=== PATIENT | female | born 1995 | race Caucasian/White ===

== ENCOUNTER 2018-02-09 19:54 | Emergency (ER) | payer OTHER, MEDICAID, SELFPAY ==
[2018-02-09 20:09] VITALS: BP 149/91; PULSE 80; RESP 14; TEMP 36.4; O2SAT 100
--- NOTE | 2018-02-09 20:27 | DI.US.S_ITS ---
PROCEDURE: US OB <= 14 WEEKS FETUS INDICATIONS: PAIN OUTSIDE/PRIOR DATING DATA: Last menstrual period (LMP): 12/23/17. LMP-based estimated date of delivery (THELMA): 09/29/18. First dating scan (date and location): This study, 02/09/18. Estimated date of delivery (THELMA) from first dating scan: 10/02/18. TECHNIQUE: Real-time scanning was performed of the fetus and maternal pelvic organs, with image documentation. Endovaginal scanning was also performed to better visualize the fetus and maternal ovaries. COMPARISON: None. FINDINGS: Embryo: A crown-rump length of 0.6 correlates with a gestational age of 6 weeks 3 days, plus or -5 days. heart rate is 111 beats per minute. Measurement variability in dating: +/- 4 weeks by LMP, +/- 7 days by mean sac diameter (use before 6 weeks gestation if crown-rump length not able to be measured), +/- 5 days by crown-rump length (up to 8 weeks 6 days gestation), +/- 7 days by crown-rump length (up to 13 weeks 6 days gestation). Maternal organs: Ovaries normal considering gestational status.. Limited images through the kidneys demonstrate no hydronephrosis. IMPRESSION: Single living intrauterine gestation measured at 6 weeks 3 days gestational age with the delivery date projected to be centered on 10/02/18, plus or -5 days Dictated by: Binu Serrato M.D. on 02/09/2018 at 21:14 Approved by: Binu Serrato M.D. on 02/09/2018 at 21:17
--- NOTE | 2018-02-09 20:29 | ED.PREGNANCY ---
HPI - <ISMAEL Acosta-BC - Last Filed: 02/09/18 21:55> General Chief complaint: OB/Uterine Contractions Stated complaint: SHARP PAINS, 7 WEEKS Time Seen by Provider: 02/09/18 20:08 Source: patient and family Mode of arrival: ambulatory Limitations: no limitations History of Present Illness HPI Narrative: Patient is a 22-year-old female who states she is last menstrual period 12/23/2017. She presents with chief complaint of abdominal pain that started yesterday. She states it is the center of her abdomen radiating down to her right lower quadrant. She denies any chest pain, shortness of breath, dizziness or lightheadedness. She states she has been vomiting profusely for the past week, which she states happened with her last . She denies any vaginal bleeding or vaginal discharge or sexually transmitted infection risk. She presents with today. She complains of slight dysuria but no noted urgency or frequency. She states she has had urinary tract infections before and this does not feel like one. She has not had any OB care yet this and does not have a confirmed IUP. She denies any constipation or diarrhea. Related Data Previous Rx's Medication Instructions Recorded docusate sodium [Colace] 100 mg PO BID #14 cap 02/09/17 oxycodone 5 mg PO Q4HP PRN #30 tab 02/09/17 cephalexin 500 mg PO BID #20 cap 02/09/18 ondansetron 4 mg disintegrating 4 mg PO Q6H PRN #20 tab 02/09/18 tablet Allergies Allergy/AdvReac Type Severity Reaction Status Date / Time codeine Allergy Intermediate itching, Verified 02/09/18 20:12 SOB Pollen Allergy Mild sneezing Uncoded 07/21/17 12:32 Review of Systems <ISMAEL Acosta- - Last Filed: 02/09/18 21:55> Review of Systems GENERAL: Denies chills, fatigue, malaise, fever, sweats. HEENT: Denies sinus pain, ear pain, sore throat, difficulty swallowing, dizziness. RESPIRATORY: Denies dyspnea, cough, wheezing, hemoptysis, sputum. CARDIOVASCULAR: Denies chest pain, palpitations, orthopnea, edema, GASTROINTESTINAL: see HPI : See HPI. MUSCULOSKELETAL: denies weakness, joint pain, or bony pain SKIN: Denies rash, skin lesions, or other NEUROLOGIC: Denies weakness, headache, numbness, change in speech, confusion, seizures, incoordination. PSYCHIATRIC: No concerning psychosocial issues. 12 point review of systems is negative except for those stated above Exam <Iona HollyISMAEL-BC - Last Filed: 02/09/18 21:55> Narrative Exam Narrative: GENERAL: This is a well-nourished, well-developed patient, in mild distress. HEAD: Atraumatic. Normocephalic. No temporal or scalp tenderness. EYES: Pupils equal round and reactive. Extraocular motions intact. No scleral icterus. No injection or drainage. ENT: Nose without bleeding, purulent drainage or septal hematoma. Throat without erythema, tonsillar hypertrophy or exudate. Uvula midline. Airway patent. NECK: Trachea midline. No JVD or lymphadenopathy. Supple, nontender, no meningeal signs. CARDIOVASCULAR: Regular rate and rhythm without murmurs, gallops, or rubs. RESPIRATORY: Clear to auscultation. Breath sounds equal bilaterally. No wheezes, rales, or rhonchi. GASTROINTESTINAL: Abdomen soft, nondistended. No hepato-splenomegaly, or palpable masses. Pain on palpation suprapubic area. Pain to palpation right lower quadrant with guarding noted. patient is exquisitely tender right lower quadrant and suprapubic area, grimacing upon exam. EXTREMITIES: No clubbing, cyanosis, or edema. No joint tenderness, effusion, or edema noted. BACK: Nontender without deformity or crepitance. No flank tenderness. no CVA tenderness bilaterally. NEURO: AOx3. SKIN: No rash or erythema. Initial Vital Signs Initial Vital Signs: Vital Signs Temperature 97.6 F 02/09/18 20:09 Pulse Rate 80 02/09/18 20:09 Respiratory Rate 14 02/09/18 20:09 Blood Pressure 149/91 H 02/09/18 20:09 Pulse Oximetry 100 02/09/18 20:09 <Rosario Gann DO - Last Filed: 02/10/18 00:02> Initial Vital Signs Initial Vital Signs: Vital Signs Temperature 97.6 F 02/09/18 20:09 Pulse Rate 80 02/09/18 20:09 Respiratory Rate 14 02/09/18 20:09 Blood Pressure 149/91 H 10/31/18 20:09 Pulse Oximetry 100 02/09/18 20:09 Course <ISMAEL Acosta-BC - Last Filed: 02/09/18 21:55> Orders Ordered: ED Orders 02/09/18 20:22 Urinalysis and Microscopic Stat Urine Culture Stat 02/09/18 20:27 US OB <= 14 weeks fetus Stat 02/09/18 20:40 ABO RH Type Stat Amylase Stat Complete Blood Count AUTO DIFF Stat Comprehensive Metabolic Panel Stat HCG Quantitative Stat Lipase Stat Discontinued Medications Cephalexin HCl (Keflex) 500 mg PO NOW ONE Stop: 02/09/18 21:47 Last Admin: 02/09/18 21:49 Dose: 500 mg Sodium Chloride (Normal Saline 0.9%) 1,000 mls @ 1,000 mls/hr IV BOLUS ONE Stop: 02/09/18 21:26 Last Infusion: 02/09/18 21:53 Dose: 0 mls/hr Admin: 02/09/18 20:51 Dose: 1,000 mls/hr Potassium Chloride (Klor-Con M20) 20 meq PO NOW ONE Stop: 02/09/18 21:47 Last Admin: 02/09/18 21:50 Dose: 20 meq Vital Signs - 8 hr 02/09/18 20:09 02/09/18 21:54 Temperature 97.6 F Pulse Rate 80 80 Respiratory Rate 14 13 Blood Pressure 149/91 H Blood Pressure [Left Arm] 103/49 L Pulse Oximetry 100 100 <Rosario Gann DO - Last Filed: 02/10/18 00:02> Orders Ordered: ED Orders 02/09/18 20:22 Urinalysis and Microscopic Stat Urine Culture Stat 02/09/18 20:27 US OB <= 14 weeks fetus Stat 02/09/18 20:40 ABO RH Type Stat Amylase Stat Complete Blood Count AUTO DIFF Stat Comprehensive Metabolic Panel Stat HCG Quantitative Stat Lipase Stat Discontinued Medications Cephalexin HCl (Keflex) 500 mg PO NOW ONE Stop: 02/09/18 21:47 Last Admin: 02/09/18 21:49 Dose: 500 mg Sodium Chloride (Normal Saline 0.9%) 1,000 mls @ 1,000 mls/hr IV BOLUS ONE Stop: 02/09/18 21:26 Last Infusion: 02/09/18 21:53 Dose: 0 mls/hr Admin: 02/09/18 20:51 Dose: 1,000 mls/hr Potassium Chloride (Klor-Con M20) 20 meq PO NOW ONE Stop: 02/09/18 21:47 Last Admin: 02/09/18 21:50 Dose: 20 meq Vital Signs - 8 hr 02/09/18 20:09 02/09/18 21:54 Temperature 97.6 F Pulse Rate 80 80 Respiratory Rate 14 13 Blood Pressure 149/91 H Blood Pressure [Left Arm] 103/49 L Pulse Oximetry 100 100 MDM - OB/Uterine Contractions <KENNEDY Acosta - Last Filed: 02/09/18 21:55> Lab Data Result diagrams: 02/09/18 20:40 02/09/18 20:40 Lab Results 02/09/18 02/09/18 02/09/18 Range/Units 20:22 20:40 20:40 WBC 11.0 (4.5-11.0) X10^3/uL RBC 4.63 (4.0-5.2) X10^6/uL Hgb 13.0 (12.0-16.0) g/dL Hct 38.4 (36-46) % MCV 82.9 (80-100) fL MCH 28.1 (26-34) PG MCHC 33.9 (30-36) % RDW 12.8 (11.6-14.8) % Plt Count 229 (150-400) X10^3/uL Neut % (Auto) 65.5 (50-75) % Lymph % (Auto) 25.6 (25-40) % [place] % (Auto) 7.1 (3-14) % Eos % (Auto) 1.0 L (2-4) % Baso % (Auto) 0.8 (0-2) % Neut # (Auto) 7200 H (7379-1329) /uL Sodium 142 (137-145) mmol/L Potassium 3.4 (3.4-5.1) mmol/L Chloride 102 (98-107) mmol/L Carbon Dioxide 25 (22-32) mmol/L BUN 6 L (7-17) mg/dL Creatinine 0.70 (0.52-1.04) mg/dL Estimated GFR > 60.0 (>60) mL/min BUN/Creatinine Ratio 8.6 (6-22) Glucose 94 (70-100) mg/dL Calcium 9.1 (8.4-10.2) mg/dL Total Bilirubin 0.4 (0.2-1.3) mg/dL AST 21 (14-36) IU/L ALT 22 (9-52) IU/L Alkaline Phosphatase 43 (38-126) U/L Total Protein 7.8 (6.3-8.2) g/dL Albumin 4.7 (3.5-5.0) g/dL Globulin 3.1 (1.7-4.1) g/dL Albumin/Globulin Ratio 1.5 (1.0-2.8) Amylase 69 (30-110) U/L Lipase 174 (23-300) U/L HCG, Quant 14139 mIU/mL Urine Color Yellow Urine Appearance Clear Urine pH 5.5 (4.5-8.0) Ur Specific [place] 1.010 (1.000-1.035) Urine Protein Negative (Negative) Urine Glucose (UA) Negative (Normal) g/dL Urine Ketones Negative (NEGATIVE) Urine Occult Blood Negative (Negative) Urine Nitrate Negative (Negative) Urine Bilirubin Negative (NEGATIVE) Urine Urobilinogen 0.2 (0.2) E.U./dL Ur Leukocyte Esterase Trace H (NEGATIVE) Urine RBC None seen (0-5/HPF) Urine WBC 0-1/hpf (0-5/HPF) Ur Squamous Epith Cells 0-1 /hpf Urine Bacteria Moderate (10-30) H (None) Ur Culture Indicated? Specimen cultured Micro UA Comment Not Reportable Blood Type 02/09/18 02/09/18 Range/Units 20:40 20:40 WBC (4.5-11.0) X10^3/uL RBC (4.0-5.2) X10^6/uL Hgb (12.0-16.0) g/dL Hct (36-46) % MCV (80-100) fL MCH (26-34) PG MCHC (30-36) % RDW (11.6-14.8) % Plt Count (150-400) X10^3/uL Neut % (Auto) (50-75) % Lymph % (Auto) (25-40) % [place] % (Auto) (3-14) % Eos % (Auto) (2-4) % Baso % (Auto) (0-2) % Neut # (Auto) (2913-9777) /uL Sodium (137-145) mmol/L Potassium (3.4-5.1) mmol/L Chloride (98-107) mmol/L Carbon Dioxide (22-32) mmol/L BUN (7-17) mg/dL Creatinine (0.52-1.04) mg/dL Estimated GFR (>60) mL/min BUN/Creatinine Ratio (6-22) Glucose (70-100) mg/dL Calcium (8.4-10.2) mg/dL Total Bilirubin (0.2-1.3) mg/dL AST (14-36) IU/L ALT (9-52) IU/L Alkaline Phosphatase (38-126) U/L Total Protein (6.3-8.2) g/dL Albumin (3.5-5.0) g/dL Globulin (1.7-4.1) g/dL Albumin/Globulin Ratio (1.0-2.8) Amylase Cancelled (30-110) U/L Lipase Cancelled (23-300) U/L HCG, Quant mIU/mL Urine Color Urine Appearance Urine pH (4.5-8.0) Ur Specific [place] (1.000-1.035) Urine Protein (Negative) Urine Glucose (UA) (Normal) g/dL Urine Ketones (NEGATIVE) Urine Occult Blood (Negative) Urine Nitrate (Negative) Urine Bilirubin (NEGATIVE) Urine Urobilinogen (0.2) E.U./dL Ur Leukocyte Esterase (NEGATIVE) Urine RBC (0-5/HPF) Urine WBC (0-5/HPF) Ur Squamous Epith Cells Urine Bacteria (None) Ur Culture Indicated? Micro UA Comment Blood Type B Positive Point of Care Testing Test Results Positive Urine Dip Bedside Urine Glucose Negative Bedside Urine Bilirubin - Negative Bedside Urine Ketone - Negative Urine Specific [place] 1.015 Bedside Urine Occult Blood - Negative Bedside Urine pH 6.0 Bedside Urine Protein - Negative Bedside Urine Urobilinogen - Negative Bedside Urine Nitrite - Negative Bedside Urine Leukocytes + 70 Esterase Imaging Data us: Radiologist's impression: [facility] DATE TYPE STATUS AUTHOR 02/09/18 20:27 Binu Serrato Ashlyn M 22, F0 1995 [facility], ED - Main ED: R11 75.5kg OB/Uterine Contractions Search Chart codeine itching, SOB [Pollen ] sneezing ONSET Today 20:[address] [address] Ultrasound Report Signed Patient: Juli Menchaca MMR#: [id number] : 1995Acct:[id number] Age/Sex: 22 / FDate of Service: 02/09/18 Loc: ED Accession Number: [id number] Procedure: US OB <= 14 weeks fetus Ordering Provider: Iona Holly-BC PROCEDURE: US OB <= 14 WEEKS FETUS INDICATIONS: PAIN OUTSIDE/PRIOR DATING DATA: Last menstrual period (LMP): 12/23/17. LMP-based estimated date of delivery (THELMA): 09/29/18. First dating scan (date and location): This study, 02/09/18. Estimated date of delivery (THELMA) from first dating scan: 10/02/18. TECHNIQUE: Real-time scanning was performed of the fetus and maternal pelvic organs, with image documentation. Endovaginal scanning was also performed to better visualize the fetus and maternal ovaries. COMPARISON: None. FINDINGS: Embryo: A crown-rump length of 0.6 correlates with a gestational age of 6 weeks 3 days, plus or -5 days. heart rate is 111 beats per minute. Measurement variability in dating: +/- 4 weeks by LMP, +/- 7 days by mean sac diameter (use before 6 weeks gestation if crown-rump length not able to be measured), +/- 5 days by crown-rump length (up to 8 weeks 6 days gestation), +/- 7 days by crown-rump length (up to 13 weeks 6 days gestation). Maternal organs: Ovaries normal considering gestational status.. Limited images through the kidneys demonstrate no hydronephrosis. IMPRESSION: Single living intrauterine gestation measured at 6 weeks 3 days gestational age with the delivery date projected to be centered on 10/02/18, plus or -5 days Dictated by: Binu Serrato M.D. on 02/09/2018 at 21:14 Approved by: Binu Serrato M.D. on 02/09/2018 at 21:17 MDM Narrative Medical decision making narrative: patient is a healthy 22-year-old female who presents with chief complaint of lower abdominal pain during . She had a normal CBC, potassium of 3.4 otherwise normal CMP, normal lipase and amylase. She has complaint of vomiting for the past week, which she states is normal for her during and she was just started on Zofran by her OB. We did give her 20 mEq p.o. KCl to ensure she states in the normal range. She was also given a L of normal saline by IV. Otherwise she does not have an elevated white blood cell count And has been keeping down food and fluids well. She was noted to have a normal ultrasound and expected beta HCG level. Patient declined STI testing today as she states both she and her recently tested. We discussed the possibility of PID but she does not want a pelvic exam today, but notes that the transvaginal ultrasound was not painful. 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 Given the bacteria on her urinalysis, I will treat her for a urinary tract infection with Keflex. Discussed at length return precautions for flank pain, fever, inability keep down fluids and recommend follow-up with primary care or Ob if needed. She had no questions or concerns upon discharge. <Rosario Gann, DO - Last Filed: 02/10/18 00:02> Lab Data Lab Results 02/09/18 02/09/18 02/09/18 Range/Units 20:22 20:40 20:40 WBC 11.0 (4.5-11.0) X10^3/uL RBC 4.63 (4.0-5.2) X10^6/uL Hgb 13.0 (12.0-16.0) g/dL Hct 38.4 (36-46) % MCV 82.9 (80-100) fL MCH 28.1 (26-34) PG MCHC 33.9 (30-36) % RDW 12.8 (11.6-14.8) % Plt Count 229 (150-400) X10^3/uL Neut % (Auto) 65.5 (50-75) % Lymph % (Auto) 25.6 (25-40) % [place] % (Auto) 7.1 (3-14) % Eos % (Auto) 1.0 L (2-4) % Baso % (Auto) 0.8 (0-2) % Neut # (Auto) 7200 H (7865-5137) /uL Sodium 142 (137-145) mmol/L Potassium 3.4 (3.4-5.1) mmol/L Chloride 102 (98-107) mmol/L Carbon Dioxide 25 (22-32) mmol/L BUN 6 L (7-17) mg/dL Creatinine 0.70 (0.52-1.04) mg/dL Estimated GFR > 60.0 (>60) mL/min BUN/Creatinine Ratio 8.6 (6-22) Glucose 94 (70-100) mg/dL Calcium 9.1 (8.4-10.2) mg/dL Total Bilirubin 0.4 (0.2-1.3) mg/dL AST 21 (14-36) IU/L ALT 22 (9-52) IU/L Alkaline Phosphatase 43 (38-126) U/L Total Protein 7.8 (6.3-8.2) g/dL Albumin 4.7 (3.5-5.0) g/dL Globulin 3.1 (1.7-4.1) g/dL Albumin/Globulin Ratio 1.5 (1.0-2.8) Amylase 69 (30-110) U/L Lipase 174 (23-300) U/L HCG, Quant 35373 mIU/mL Urine Color Yellow Urine Appearance Clear Urine pH 5.5 (4.5-8.0) Ur Specific [place] 1.010 (1.000-1.035) Urine Protein Negative (Negative) Urine Glucose (UA) Negative (Normal) g/dL Urine Ketones Negative (NEGATIVE) Urine Occult Blood Negative (Negative) Urine Nitrate Negative (Negative) Urine Bilirubin Negative (NEGATIVE) Urine Urobilinogen 0.2 (0.2) E.U./dL Ur Leukocyte Esterase Trace H (NEGATIVE) Urine RBC None seen (0-5/HPF) Urine WBC 0-1/hpf (0-5/HPF) Ur Squamous Epith Cells 0-1 /hpf Urine Bacteria Moderate (10-30) H (None) Ur Culture Indicated? Specimen cultured Micro UA Comment Not Reportable Blood Type 02/09/18 02/09/18 Range/Units 20:40 20:40 WBC (4.5-11.0) X10^3/uL RBC (4.0-5.2) X10^6/uL Hgb (12.0-16.0) g/dL Hct (36-46) % MCV (80-100) fL MCH (26-34) PG MCHC (30-36) % RDW (11.6-14.8) % Plt Count (150-400) X10^3/uL Neut % (Auto) (50-75) % Lymph % (Auto) (25-40) % [place] % (Auto) (3-14) % Eos % (Auto) (2-4) % Baso % (Auto) (0-2) % Neut # (Auto) (0139-4172) /uL Sodium (137-145) mmol/L Potassium (3.4-5.1) mmol/L Chloride (98-107) mmol/L Carbon Dioxide (22-32) mmol/L BUN (7-17) mg/dL Creatinine (0.52-1.04) mg/dL Estimated GFR (>60) mL/min BUN/Creatinine Ratio (6-22) Glucose (70-100) mg/dL Calcium (8.4-10.2) mg/dL Total Bilirubin (0.2-1.3) mg/dL AST (14-36) IU/L ALT (9-52) IU/L Alkaline Phosphatase (38-126) U/L Total Protein (6.3-8.2) g/dL Albumin (3.5-5.0) g/dL Globulin (1.7-4.1) g/dL Albumin/Globulin Ratio (1.0-2.8) Amylase Cancelled (30-110) U/L Lipase Cancelled (23-300) U/L HCG, Quant mIU/mL Urine Color Urine Appearance Urine pH (4.5-8.0) Ur Specific [place] (1.000-1.035) Urine Protein (Negative) Urine Glucose (UA) (Normal) g/dL Urine Ketones (NEGATIVE) Urine Occult Blood (Negative) Urine Nitrate (Negative) Urine Bilirubin (NEGATIVE) Urine Urobilinogen (0.2) E.U./dL Ur Leukocyte Esterase (NEGATIVE) Urine RBC (0-5/HPF) Urine WBC (0-5/HPF) Ur Squamous Epith Cells Urine Bacteria (None) Ur Culture Indicated? Micro UA Comment Blood Type B Positive Point of Care Testing Test Results Positive Urine Dip Bedside Urine Glucose Negative Bedside Urine Bilirubin - Negative Bedside Urine Ketone - Negative Urine Specific [place] 1.015 Bedside Urine Occult Blood - Negative Bedside Urine pH 6.0 Bedside Urine Protein - Negative Bedside Urine Urobilinogen - Negative Bedside Urine Nitrite - Negative Bedside Urine Leukocytes + 70 Esterase Discharge Plan Departure Patient Disposition: Home Clinical Impression: UTI (urinary tract infection) Discharge Date/Time: 02/09/18 22:01 Interventions: ED Discharge Assessment Last Done: 02/09/18 22:01 Instructions: DI for Urinary Tract Infection (UTI), DI for Abdominal Pain -- Early Activity Restrictions/Additional Instructions: I am starting you on an antibiotic for urinary tract infection. Please monitor for fever, flank pain, inability to keep down fluids. Please speak re-evaluated if needed. Please follow-up with your OBGYN or your PCP or come back to the emergency department if needed. We are sending urine culture to make sure that this antibiotic will take care of the bacteria in your urine. Otherwise your potassium was on the low end of normal today, likely due to your vomiting. We gave you a small dose of potassium in the emergency department to make sure you would stay in the normal range. Your ultrasound looked good and her hormone is on track. Prescriptions: New cephalexin 500 mg capsule 500 mg PO BID Qty: 20 RF: 0 No Action oxycodone 5 MG tablet 5 mg PO Q4HP PRNQty: 30 RF: 0 docusate sodium [Colace] 100 MG capsule 100 mg PO BID Qty: 14 RF: 1 ondansetron 4 mg tablet,disintegrating 4 mg PO Q6H PRN (Reason: nausea and vomiting) Qty: 20 RF: 1 <Rosario Gann, - Last Filed: 02/10/18 00:02> [facility] ED Attending Carleen Attestation: I was immediately available in the department for consultation. Documentation has been reviewed. I agree with assessment and plan.
--- NOTE | 2018-02-09 20:36 | ED_ITS ---
HPI - <ISMAEL Acosta-BC - Last Filed: 02/09/18 21:55> General Chief complaint: OB/Uterine Contractions Stated complaint: SHARP PAINS, 7 WEEKS Time Seen by Provider: 02/09/18 20:08 Source: patient and family Mode of arrival: ambulatory Limitations: no limitations History of Present Illness HPI Narrative: Patient is a 22-year-old female who states she is last menstrual period 12/23/2017. She presents with chief complaint of abdominal pain that started yesterday. She states it is the center of her abdomen radiating down to her right lower quadrant. She denies any chest pain , shortness of breath, dizziness or lightheadedness. She states she has been vomiting profusely for the past week, which she states happened with her last . She denies any vaginal bleeding or vaginal discharge or sexually transmitted infection risk. She presents with today. She complains of slight dysuria but no noted urgency or frequency. She states she has had urinary tract infections before and this does not feel like one. She has not had any OB care yet this and does not have a confirmed IUP. She denies any constipation or diarrhea. Related Data Previous Rx's Medication Instructions Recorded docusate sodium [Colace] 100 mg PO BID #14 cap 02/09/17 oxycodone 5 mg PO Q4HP PRN #30 tab 02/09/17 cephalexin 500 mg PO BID #20 cap 02/09/18 ondansetron 4 mg disintegrating 4 mg PO Q6H PRN #20 tab 02/09/18 tablet Allergies Allergy/AdvReac Type Severity Reaction Status Date / Time codeine Allergy Intermediate itching, Verified 02/09/18 20:12 SOB Pollen Allergy Mild sneezing Uncoded 07/21/17 12:32 Review of Systems <ISMAEL Acosta- - Last Filed: 02/09/18 21:55> Review of Systems GENERAL: Denies chills, fatigue, malaise, fever, sweats. HEENT: Denies sinus pain, ear pain, sore throat, difficulty swallowing, dizziness. RESPIRATORY: Denies dyspnea, cough, wheezing, hemoptysis, sputum. CARDIOVASCULAR: Denies chest pain, palpitations, orthopnea, edema, GASTROINTESTINAL: see HPI : See HPI. MUSCULOSKELETAL: denies weakness, joint pain, or bony pain SKIN: Denies rash, skin lesions, or other NEUROLOGIC: Denies weakness, headache, numbness, change in speech, confusion, seizures, incoordination. PSYCHIATRIC: No concerning psychosocial issues. 12 point review of systems is negative except for those stated above Exam <Iona HollyISMAEL-BC - Last Filed: 02/09/18 21:55> Narrative Exam Narrative: GENERAL: This is a well-nourished, well-developed patient, in mild distress. HEAD: Atraumatic. Normocephalic. No temporal or scalp tenderness. EYES: Pupils equal round and reactive. Extraocular motions intact. No scleral icterus. No injection or drainage. ENT: Nose without bleeding, purulent drainage or septal hematoma. Throat without erythema, tonsillar hypertrophy or exudate. Uvula midline. Airway patent. NECK: Trachea midline. No JVD or lymphadenopathy. Supple, nontender, no meningeal signs. CARDIOVASCULAR: Regular rate and rhythm without murmurs, gallops, or rubs. RESPIRATORY: Clear to auscultation. Breath sounds equal bilaterally. No wheezes , rales, or rhonchi. GASTROINTESTINAL: Abdomen soft, nondistended. No hepato-splenomegaly, or palpable masses. Pain on palpation suprapubic area. Pain to palpation right lower quadrant with guarding noted. patient is exquisitely tender right lower quadrant and suprapubic area, grimacing upon exam. EXTREMITIES: No clubbing, cyanosis, or edema. No joint tenderness, effusion, or edema noted. BACK: Nontender without deformity or crepitance. No flank tenderness. no CVA tenderness bilaterally. NEURO: AOx3. SKIN: No rash or erythema. Initial Vital Signs Initial Vital Signs: Vital Signs Temperature 97.6 F 02/09/18 20:09 Pulse Rate 80 02/09/18 20:09 Respiratory Rate 14 02/09/18 20:09 Blood Pressure 149/91 H 02/09/18 20:09 Pulse Oximetry 100 02/09/18 20:09 <Rosario Gann DO - Last Filed: 02/10/18 00:02> Initial Vital Signs Initial Vital Signs: Vital Signs Temperature 97.6 F 02/09/18 20:09 Pulse Rate 80 02/09/18 20:09 Respiratory Rate 14 02/09/18 20:09 Blood Pressure 149/91 H 10/31/18 20:09 Pulse Oximetry 100 02/09/18 20:09 Course <ISMAEL Acosta-BC - Last Filed: 02/09/18 21:55> Orders Ordered: ED Orders 02/09/18 20:22 Urinalysis and Microscopic Stat Urine Culture Stat 02/09/18 20:27 US OB <= 14 weeks fetus Stat 02/09/18 20:40 ABO RH Type Stat Amylase Stat Complete Blood Count AUTO DIFF Stat Comprehensive Metabolic Panel Stat HCG Quantitative Stat Lipase Stat Discontinued Medications Cephalexin HCl (Keflex) 500 mg PO NOW ONE Stop: 02/09/18 21:47 Last Admin: 02/09/18 21:49 Dose: 500 mg Sodium Chloride (Normal Saline 0.9%) 1,000 mls @ 1,000 mls/hr IV BOLUS ONE Stop: 02/09/18 21:26 Last Infusion: 02/09/18 21:53 Dose: 0 mls/hr Admin: 02/09/18 20:51 Dose: 1,000 mls/hr Potassium Chloride (Klor-Con M20) 20 meq PO NOW ONE Stop: 02/09/18 21:47 Last Admin: 02/09/18 21:50 Dose: 20 meq Vital Signs - 8 hr 02/09/18 20:09 02/09/18 21:54 Temperature 97.6 F Pulse Rate 80 80 Respiratory Rate 14 13 Blood Pressure 149/91 H Blood Pressure [Left Arm] 103/49 L Pulse Oximetry 100 100 <Rosario Gann DO - Last Filed: 02/10/18 00:02> Orders Ordered: ED Orders 02/09/18 20:22 Urinalysis and Microscopic Stat Urine Culture Stat 02/09/18 20:27 US OB <= 14 weeks fetus Stat 02/09/18 20:40 ABO RH Type Stat Amylase Stat Complete Blood Count AUTO DIFF Stat Comprehensive Metabolic Panel Stat HCG Quantitative Stat Lipase Stat Discontinued Medications Cephalexin HCl (Keflex) 500 mg PO NOW ONE Stop: 02/09/18 21:47 Last Admin: 02/09/18 21:49 Dose: 500 mg Sodium Chloride (Normal Saline 0.9%) 1,000 mls @ 1,000 mls/hr IV BOLUS ONE Stop: 02/09/18 21:26 Last Infusion: 02/09/18 21:53 Dose: 0 mls/hr Admin: 02/09/18 20:51 Dose: 1,000 mls/hr Potassium Chloride (Klor-Con M20) 20 meq PO NOW ONE Stop: 02/09/18 21:47 Last Admin: 02/09/18 21:50 Dose: 20 meq Vital Signs - 8 hr 02/09/18 20:09 02/09/18 21:54 Temperature 97.6 F Pulse Rate 80 80 Respiratory Rate 14 13 Blood Pressure 149/91 H Blood Pressure [Left Arm] 103/49 L Pulse Oximetry 100 100 MDM - OB/Uterine Contractions <KENNEDY Acosta - Last Filed: 02/09/18 21:55> Lab Data Result diagrams: 02/09/18 20:40 02/09/18 20:40 Lab Results 02/09/18 02/09/18 02/09/18 Range/Units 20:22 20:40 20:40 WBC 11.0 (4.5-11.0) X10^3/uL RBC 4.63 (4.0-5.2) X10^6/uL Hgb 13.0 (12.0-16.0) g/dL Hct 38.4 (36-46) % MCV 82.9 (80-100) fL MCH 28.1 (26-34) PG MCHC 33.9 (30-36) % RDW 12.8 (11.6-14.8) % Plt Count 229 (150-400) X10^3/uL Neut % (Auto) 65.5 (50-75) % Lymph % (Auto) 25.6 (25-40) % Atkinson % (Auto) 7.1 (3-14) % Eos % (Auto) 1.0 L (2-4) % Baso % (Auto) 0.8 (0-2) % Neut # (Auto) 7200 H (6955-9069) /uL Sodium 142 (137-145) mmol/L Potassium 3.4 (3.4-5.1) mmol/L Chloride 102 (98-107) mmol/L Carbon Dioxide 25 (22-32) mmol/L BUN 6 L (7-17) mg/dL Creatinine 0.70 (0.52-1.04) mg/dL Estimated GFR > 60.0 (>60) mL/min BUN/Creatinine Ratio 8.6 (6-22) Glucose 94 (70-100) mg/dL Calcium 9.1 (8.4-10.2) mg/dL Total Bilirubin 0.4 (0.2-1.3) mg/dL AST 21 (14-36) IU/L ALT 22 (9-52) IU/L Alkaline Phosphatase 43 (38-126) U/L Total Protein 7.8 (6.3-8.2) g/dL Albumin 4.7 (3.5-5.0) g/dL Globulin 3.1 (1.7-4.1) g/dL Albumin/Globulin Ratio 1.5 (1.0-2.8) Amylase 69 (30-110) U/L Lipase 174 (23-300) U/L HCG, Quant 93001 mIU/mL Urine Color Yellow Urine Appearance Clear Urine pH 5.5 (4.5-8.0) Ur Specific Pound 1.010 (1.000-1.035) Urine Protein Negative (Negative) Urine Glucose (UA) Negative (Normal) g/dL Urine Ketones Negative (NEGATIVE) Urine Occult Blood Negative (Negative) Urine Nitrate Negative (Negative) Urine Bilirubin Negative (NEGATIVE) Urine Urobilinogen 0.2 (0.2) E.U./dL Ur Leukocyte Esterase Trace H (NEGATIVE) Urine RBC None seen (0-5/HPF) Urine WBC 0-1/hpf (0-5/HPF) Ur Squamous Epith Cells 0-1 /hpf Urine Bacteria Moderate (10-30) H (None) Ur Culture Indicated? Specimen cultured Micro UA Comment Not Reportable Blood Type 02/09/18 02/09/18 Range/Units 20:40 20:40 WBC (4.5-11.0) X10^3/uL RBC (4.0-5.2) X10^6/uL Hgb (12.0-16.0) g/dL Hct (36-46) % MCV (80-100) fL MCH (26-34) PG MCHC (30-36) % RDW (11.6-14.8) % Plt Count (150-400) X10^3/uL Neut % (Auto) (50-75) % Lymph % (Auto) (25-40) % Atkinson % (Auto) (3-14) % Eos % (Auto) (2-4) % Baso % (Auto) (0-2) % Neut # (Auto) (0013-7607) /uL Sodium (137-145) mmol/L Potassium (3.4-5.1) mmol/L Chloride (98-107) mmol/L Carbon Dioxide (22-32) mmol/L BUN (7-17) mg/dL Creatinine (0.52-1.04) mg/dL Estimated GFR (>60) mL/min BUN/Creatinine Ratio (6-22) Glucose (70-100) mg/dL Calcium (8.4-10.2) mg/dL Total Bilirubin (0.2-1.3) mg/dL AST (14-36) IU/L ALT (9-52) IU/L Alkaline Phosphatase (38-126) U/L Total Protein (6.3-8.2) g/dL Albumin (3.5-5.0) g/dL Globulin (1.7-4.1) g/dL Albumin/Globulin Ratio (1.0-2.8) Amylase Cancelled (30-110) U/L Lipase Cancelled (23-300) U/L HCG, Quant mIU/mL Urine Color Urine Appearance Urine pH (4.5-8.0) Ur Specific Pound (1.000-1.035) Urine Protein (Negative) Urine Glucose (UA) (Normal) g/dL Urine Ketones (NEGATIVE) Urine Occult Blood (Negative) Urine Nitrate (Negative) Urine Bilirubin (NEGATIVE) Urine Urobilinogen (0.2) E.U./dL Ur Leukocyte Esterase (NEGATIVE) Urine RBC (0-5/HPF) Urine WBC (0-5/HPF) Ur Squamous Epith Cells Urine Bacteria (None) Ur Culture Indicated? Micro UA Comment Blood Type B Positive Point of Care Testing Test Results Positive Urine Dip Bedside Urine Glucose Negative Bedside Urine Bilirubin - Negative Bedside Urine Ketone - Negative Urine Specific Pound 1.015 Bedside Urine Occult Blood - Negative Bedside Urine pH 6.0 Bedside Urine Protein - Negative Bedside Urine Urobilinogen - Negative Bedside Urine Nitrite - Negative Bedside Urine Leukocytes + 70 Esterase Imaging Data us: Radiologist's impression: [facility] DATE TYPE STATUS AUTHOR 02/09/18 20:27 Binu Serrato Ashlyn M 22, F0 [address] [facility] ER, ED - Main ED: R11 75.5kg OB/Uterine Contractions Search Chart codeine itching, SOB [Pollen ] sneezing ONSET Today 20:[address] [address] Ultrasound Report Signed Patient: Juli Menchaca MMR#: [id number] : 1995Acct:[id number] Age/Sex: 22 / FDate of Service: 02/09/18 Loc: ED Accession Number: [id number] Procedure: US OB <= 14 weeks fetus Ordering Provider: Iona Holly-BC PROCEDURE: US OB <= 14 WEEKS FETUS INDICATIONS: PAIN OUTSIDE/PRIOR DATING DATA: Last menstrual period (LMP): 12/23/17. LMP-based estimated date of delivery (THELMA): 09/29/18. First dating scan (date and location): This study, 02/09/18. Estimated date of delivery (THELMA) from first dating scan: 10/02/18. TECHNIQUE: Real-time scanning was performed of the fetus and maternal pelvic organs, with image documentation. Endovaginal scanning was also performed to better visualize the fetus and maternal ovaries. COMPARISON: None. FINDINGS: Embryo: A crown-rump length of 0.6 correlates with a gestational age of 6 weeks 3 days, plus or -5 days. heart rate is 111 beats per minute. Measurement variability in dating: +/- 4 weeks by LMP, +/- 7 days by mean sac diameter (use before 6 weeks gestation if crown-rump length not able to be measured), +/ - 5 days by crown-rump length (up to 8 weeks 6 days gestation), +/- 7 days by crown-rump length (up to 13 weeks 6 days gestation). Maternal organs: Ovaries normal considering gestational status.. Limited images through the kidneys demonstrate no hydronephrosis. IMPRESSION: Single living intrauterine gestation measured at 6 weeks 3 days gestational age with the delivery date projected to be centered on 10/02/18, plus or -5 days Dictated by: Binu Serrato M.D. on 02/09/2018 at 21:14 Approved by: Binu Serrato M.D. on 02/09/2018 at 21:17 MDM Narrative Medical decision making narrative: patient is a healthy 22-year-old female who presents with chief complaint of lower abdominal pain during . She had a normal CBC, potassium of 3.4 otherwise normal CMP, normal lipase and amylase. She has complaint of vomiting for the past week, which she states is normal for her during and she was just started on Zofran by her OB. We did give her 20 mEq p.o. KCl to ensure she states in the normal range. She was also given a L of normal saline by IV. Otherwise she does not have an elevated white blood cell count And has been keeping down food and fluids well. She was noted to have a normal ultrasound and expected beta HCG level. Patient declined STI testing today as she states both she and her recently tested. We discussed the possibility of PID but she does not want a pelvic exam today, but notes that the transvaginal ultrasound was not painful. 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 Given the bacteria on her urinalysis, I will treat her for a urinary tract infection with Keflex. Discussed at length return precautions for flank pain, fever, inability keep down fluids and recommend follow-up with primary care or Ob if needed. She had no questions or concerns upon discharge. <Rosario Gann, DO - Last Filed: 02/10/18 00:02> Lab Data Lab Results 02/09/18 02/09/18 02/09/18 Range/Units 20:22 20:40 20:40 WBC 11.0 (4.5-11.0) X10^3/uL RBC 4.63 (4.0-5.2) X10^6/uL Hgb 13.0 (12.0-16.0) g/dL Hct 38.4 (36-46) % MCV 82.9 (80-100) fL MCH 28.1 (26-34) PG MCHC 33.9 (30-36) % RDW 12.8 (11.6-14.8) % Plt Count 229 (150-400) X10^3/uL Neut % (Auto) 65.5 (50-75) % Lymph % (Auto) 25.6 (25-40) % Atkinson % (Auto) 7.1 (3-14) % Eos % (Auto) 1.0 L (2-4) % Baso % (Auto) 0.8 (0-2) % Neut # (Auto) 7200 H (2242-8934) /uL Sodium 142 (137-145) mmol/L Potassium 3.4 (3.4-5.1) mmol/L Chloride 102 (98-107) mmol/L Carbon Dioxide 25 (22-32) mmol/L BUN 6 L (7-17) mg/dL Creatinine 0.70 (0.52-1.04) mg/dL Estimated GFR > 60.0 (>60) mL/min BUN/Creatinine Ratio 8.6 (6-22) Glucose 94 (70-100) mg/dL Calcium 9.1 (8.4-10.2) mg/dL Total Bilirubin 0.4 (0.2-1.3) mg/dL AST 21 (14-36) IU/L ALT 22 (9-52) IU/L Alkaline Phosphatase 43 (38-126) U/L Total Protein 7.8 (6.3-8.2) g/dL Albumin 4.7 (3.5-5.0) g/dL Globulin 3.1 (1.7-4.1) g/dL Albumin/Globulin Ratio 1.5 (1.0-2.8) Amylase 69 (30-110) U/L Lipase 174 (23-300) U/L HCG, Quant 43954 mIU/mL Urine Color Yellow Urine Appearance Clear Urine pH 5.5 (4.5-8.0) Ur Specific Pound 1.010 (1.000-1.035) Urine Protein Negative (Negative) Urine Glucose (UA) Negative (Normal) g/dL Urine Ketones Negative (NEGATIVE) Urine Occult Blood Negative (Negative) Urine Nitrate Negative (Negative) Urine Bilirubin Negative (NEGATIVE) Urine Urobilinogen 0.2 (0.2) E.U./dL Ur Leukocyte Esterase Trace H (NEGATIVE) Urine RBC None seen (0-5/HPF) Urine WBC 0-1/hpf (0-5/HPF) Ur Squamous Epith Cells 0-1 /hpf Urine Bacteria Moderate (10-30) H (None) Ur Culture Indicated? Specimen cultured Micro UA Comment Not Reportable Blood Type 02/09/18 02/09/18 Range/Units 20:40 20:40 WBC (4.5-11.0) X10^3/uL RBC (4.0-5.2) X10^6/uL Hgb (12.0-16.0) g/dL Hct (36-46) % MCV (80-100) fL MCH (26-34) PG MCHC (30-36) % RDW (11.6-14.8) % Plt Count (150-400) X10^3/uL Neut % (Auto) (50-75) % Lymph % (Auto) (25-40) % Atkinson % (Auto) (3-14) % Eos % (Auto) (2-4) % Baso % (Auto) (0-2) % Neut # (Auto) (9363-6675) /uL Sodium (137-145) mmol/L Potassium (3.4-5.1) mmol/L Chloride (98-107) mmol/L Carbon Dioxide (22-32) mmol/L BUN (7-17) mg/dL Creatinine (0.52-1.04) mg/dL Estimated GFR (>60) mL/min BUN/Creatinine Ratio (6-22) Glucose (70-100) mg/dL Calcium (8.4-10.2) mg/dL Total Bilirubin (0.2-1.3) mg/dL AST (14-36) IU/L ALT (9-52) IU/L Alkaline Phosphatase (38-126) U/L Total Protein (6.3-8.2) g/dL Albumin (3.5-5.0) g/dL Globulin (1.7-4.1) g/dL Albumin/Globulin Ratio (1.0-2.8) Amylase Cancelled (30-110) U/L Lipase Cancelled (23-300) U/L HCG, Quant mIU/mL Urine Color Urine Appearance Urine pH (4.5-8.0) Ur Specific Pound (1.000-1.035) Urine Protein (Negative) Urine Glucose (UA) (Normal) g/dL Urine Ketones (NEGATIVE) Urine Occult Blood (Negative) Urine Nitrate (Negative) Urine Bilirubin (NEGATIVE) Urine Urobilinogen (0.2) E.U./dL Ur Leukocyte Esterase (NEGATIVE) Urine RBC (0-5/HPF) Urine WBC (0-5/HPF) Ur Squamous Epith Cells Urine Bacteria (None) Ur Culture Indicated? Micro UA Comment Blood Type B Positive Point of Care Testing Test Results Positive Urine Dip Bedside Urine Glucose Negative Bedside Urine Bilirubin - Negative Bedside Urine Ketone - Negative Urine Specific Pound 1.015 Bedside Urine Occult Blood - Negative Bedside Urine pH 6.0 Bedside Urine Protein - Negative Bedside Urine Urobilinogen - Negative Bedside Urine Nitrite - Negative Bedside Urine Leukocytes + 70 Esterase Discharge Plan Departure Patient Disposition: Home Clinical Impression: UTI (urinary tract infection) Discharge Date/Time: 02/09/18 22:01 Interventions: ED Discharge Assessment Last Done: 02/09/18 22:01 Instructions: DI for Urinary Tract Infection (UTI), DI for Abdominal Pain -- Early Activity Restrictions/Additional Instructions: I am starting you on an antibiotic for urinary tract infection. Please monitor for fever, flank pain, inability to keep down fluids. Please speak re- evaluated if needed. Please follow-up with your OBGYN or your PCP or come back to the emergency department if needed. We are sending urine culture to make sure that this antibiotic will take care of the bacteria in your urine. Otherwise your potassium was on the low end of normal today, likely due to your vomiting. We gave you a small dose of potassium in the emergency department to make sure you would stay in the normal range. Your ultrasound looked good and her hormone is on track. Prescriptions: New cephalexin 500 mg capsule 500 mg PO BID Qty: 20 RF: 0 No Action oxycodone 5 MG tablet 5 mg PO Q4HP PRNQty: 30 RF: 0 docusate sodium [Colace] 100 MG capsule 100 mg PO BID Qty: 14 RF: 1 ondansetron 4 mg tablet,disintegrating 4 mg PO Q6H PRN (Reason: nausea and vomiting) Qty: 20 RF: 1 <Rosario Gann, - Last Filed: 02/10/18 00:02> [facility] ED Attending Carleen Attestation: I was immediately available in the department for consultation. Documentation has been reviewed. I agree with assessment and plan.
[2018-02-09 20:50] LABS: Add Manual Diff / Slide Review NO; Basophils Percent Auto 0.8 % (0-2); Hematocrit 38.4 % (36-46); Lymphocytes Percent Auto 25.6 % (25-40); Mean Corpuscular HGB Conc 33.9 % (30-36); Mean Corpuscular Hemoglobin 28.1 PG (26-34); Mean Corpuscular Volume 82.9 fL (80-100); Monocytes Percent Auto 7.1 % (3-14); Neutrophils Absolute Auto 7200 /uL (3000-5900); Neutrophils Percent Auto 65.5 % (50-75); Platelet Count 229 X10^3/uL (150-400); Red Blood Cell Count 4.63 X10^6/uL (4.0-5.2); Red Cell Distribution Width 12.8 % (11.6-14.8)
[2018-02-09] MEDS: SODIUM CHLORIDE 0.9% 1,000 ML 1000 ML IV (20:51)
[2018-02-09 21:02] LABS: RBC Urine None Seen (0-5/HPF)
[2018-02-09 21:03] LABS: Alanine Aminotransferase 22 IU/L (9-52); Albumin 4.7 g/dL (3.5-5.0); Albumin Globulin Ratio 1.5 (1.0-2.8); Alkaline Phosphatase 43 U/L (38-126); Amylase 69 U/L (30-110); Aspartate Aminotransferase 21 IU/L (14-36); BUN Creatinine Ratio 8.6 (6-22); Bilirubin Total 0.4 mg/dL (0.2-1.3); Blood Urea Nitrogen 6 mg/dL (7-17); Calcium 9.1 mg/dL (8.4-10.2); Carbon Dioxide 25 mmol/L (22-32); Chloride 102 mmol/L (98-107); Estimated Glomerular Filt Rate > 60.0 mL/min (>60); Globulin 3.1 g/dL (1.7-4.1); Glucose 94 mg/dL (70-100); HEMOLYSIS < 15 (0-50); Lipase 174 U/L (23-300); Potassium 3.4 mmol/L (3.4-5.1); Sodium 142 mmol/L (137-145); Total Protein 7.8 g/dL (6.3-8.2)
[2018-02-09 21:12] LABS: Appearance Urine UA CLEAR; Bilirubin Urine UA NEGATIVE (NEGATIVE); Color Urine UA YELLOW; Glucose Urine UA NEGATIVE (Normal); Ketones Urine UA NEGATIVE (NEGATIVE); Leukocyte Esterase Urine UA TRACE (NEGATIVE); Nitrite Urine UA NEGATIVE (Negative); Occult Blood Urine UA NEGATIVE (Negative); Protein Urine UA NEGATIVE (Negative); Urobilinogen Urine UA 0.2 E.U./dL (0.2); pH Urine UA 5.5 (4.5-8.0)
[2018-02-09 21:28] LABS: Bacteria Urine Moderate (10-30); Culture Indicated Urine Specimen Cultured; Squamous Epithelial Cell Urine 0-1 /HPF; WBC Urine 0-1/HPF (0-5/HPF)
[2018-02-09 21:44] LABS: HCG Quantitative /Beta subunit 33086 mIU/mL
[2018-02-09] MEDS: cephALEXin 250 MG CAPSULE 500 MG PO (21:49)
[2018-02-09] MEDS: POTASSIUM CHLORIDE 20 MEQ TAB PO (21:50)
[2018-02-09 21:54] VITALS: BP 103/49; PULSE 80; RESP 13; O2SAT 100
== END 2018-02-09 22:01 | disposition home or self-care (01) ==
PROVIDERS: Emergency Provider Nurse Practitioner Family
DX: O23.41 Unspecified infection of urinary tract in pregnancy, first trimester (principal); Z3A.01 Less than 8 weeks gestation of pregnancy
CPT/HCPCS: 36591; 76801; 76817; 80053; 81001; 81003; 81025; 82150; 83690; 84702; 85025; 86900; 86901; 87086; 96360; 99283; 99284

== ENCOUNTER → 2018-02-18 07:21 | Outpatient (CLI) | payer OTHER, MEDICAID, SELFPAY ==
--- NOTE | 2018-02-18 07:23 | DI.US.S_ITS ---
PROCEDURE: US OB <= 14 WEEKS FETUS INDICATIONS: FOLLOW-UP OUTSIDE/PRIOR DATING DATA: Last menstrual period (LMP): 12/23/17. LMP-based estimated date of delivery (THELMA): 09/29/18. First dating scan (date and location): This study, 02/09/18. Estimated date of delivery (THELMA) from first dating scan: 10/02/18. TECHNIQUE: Real-time scanning was performed of the fetus and maternal pelvic organs, with image documentation. Endovaginal scanning was also performed to better visualize the fetus and maternal ovaries. COMPARISON: [facility], OB <= 14 WEEKS FETUS, 02/09/2018, 20:43. FINDINGS: Embryo: [place]-rump length measures 1.4 cm corresponding to 7 weeks 4 days. Heart measured 158 beats per minute. Perigestational sac bleeding site present measuring 2.4 x 1.7 x 1.8 cm. Measurement variability in dating: +/- 4 weeks by LMP, +/- 7 days by mean sac diameter (use before 6 weeks gestation if crown-rump length not able to be measured), +/- 5 days by crown-rump length (up to 8 weeks 6 days gestation), +/- 7 days by crown-rump length (up to 13 weeks 6 days gestation). Maternal organs: Ovaries within normal limits, with right corpus luteal cyst measuring 2.3 cm.. Limited images through the kidneys demonstrate no hydronephrosis. IMPRESSION: 1. Single living IUP redemonstrated with the estimated gestational age at 7 weeks 5 days. Ultrasound THELMA 10/02/2017. 2. Perigestational sac bleed redemonstrated appearing slightly decreased in size from last exam. Dictated by: Jonah Chaparro [facility] Interpreted: Marleni Barrett MD on 02/18/2018 at 10:45 Approved by: Marleni Barrett M.D. on 02/18/2018 at 12:48
== END ==
PROVIDERS: PCP Obstetrics & Gynecology; Visit Provider Obstetrics & Gynecology
DX: Z34.81 Encounter for supervision of other normal pregnancy, first trimester (principal); Z36.89 Encounter for other specified antenatal screening; Z3A.01 Less than 8 weeks gestation of pregnancy
CPT/HCPCS: 76801; 76817

== ENCOUNTER → 2018-03-14 17:00 | Outpatient (CLI) | payer OTHER, MEDICAID, SELFPAY ==
[2018-03-14 18:07] LABS: Add Manual Diff / Slide Review NO; Basophils Percent Auto 0.4 % (0-2); Eosinophils Percent Auto 1.1 % (2-4); Hematocrit 36.1 % (36-46); Hemoglobin 12.4 g/dL (12.0-16.0); Lymphocytes Percent Auto 24.9 % (25-40); Mean Corpuscular HGB Conc 34.4 % (30-36); Mean Corpuscular Hemoglobin 28.7 PG (26-34); Mean Corpuscular Volume 83.5 fL (80-100); Neutrophils Absolute Auto 7900 /uL (3000-5900); Neutrophils Percent Auto 68.6 % (50-75); Platelet Count 209 X10^3/uL (150-400); Red Blood Cell Count 4.32 X10^6/uL (4.0-5.2); Red Cell Distribution Width 13.3 % (11.6-14.8); White Blood Cell Count 11.6 X10^3/uL (4.5-11.0)
[2018-03-14 18:29] LABS: Appearance Urine UA CLEAR; Bilirubin Urine UA NEGATIVE (NEGATIVE); Color Urine UA YELLOW; Glucose Urine UA NEGATIVE (Normal); Ketones Urine UA NEGATIVE (NEGATIVE); Leukocyte Esterase Urine UA NEGATIVE (NEGATIVE); Nitrite Urine UA NEGATIVE (Negative); Occult Blood Urine UA NEGATIVE (Negative); Protein Urine UA NEGATIVE (Negative); Urobilinogen Urine UA 0.2 E.U./dL (0.2); pH Urine UA 5.5 (4.5-8.0)
[2018-03-14 18:47] LABS: Hepatitis B Surface Antigen NEGATIVE s/c (NEGATIVE); Rubella Antibody IgG 11.6 IU/mL (>15)
[2018-03-14 19:05] LABS: HIV 1 and 2 Antibody NEGATIVE (NEGATIVE); Hep C Virus Ab w/Reflex Quant NEGATIVE s/c (NEGATIVE)
[2018-03-16 14:33] LABS: RPR Screen Nonreactive (Nonreactive)
[2018-03-17 13:49] LABS: HSV 2 IGG AB < 0.90 index (< 0.90)
== END ==
PROVIDERS: Visit Provider Obstetrics & Gynecology
DX: Z34.81 Encounter for supervision of other normal pregnancy, first trimester (principal); Z3A.01 Less than 8 weeks gestation of pregnancy
CPT/HCPCS: 36415; 80055; 81003; 86695; 86696; 86703; 86787; 86803; 86850; 86900; 86901; 87086

== ENCOUNTER → 2018-04-20 16:00 | Outpatient (CLI) | payer OTHER, MEDICAID, SELFPAY ==
[2018-04-26 13:25] LABS: AFP, Serum 31.2 ng/mL; Calc Gestational Age 16.9; Cigarette Smoker N; Donated Egg NOT GIVEN; Donor Egg Age NOT GIVEN; Estriol, Free 1.39 ng/mL; Inhibin A, Dimeric 146 pg/mL; Maternal Ethnicity OTHER; Maternal Weight 155 lbs; Number of Fetuses 1; Previous Pregnancy Down Syndro NOT GIVEN; hCG, MoM 0.94
== END ==
PROVIDERS: Family Provider Obstetrics & Gynecology; Visit Provider Obstetrics & Gynecology
DX: Z34.92 Encounter for supervision of normal pregnancy, unspecified, second trimester (principal); Z3A.16 16 weeks gestation of pregnancy
CPT/HCPCS: 36415; 82105; 82677; 84702; 86336

== ENCOUNTER → 2018-05-26 10:07 | Outpatient (CLI) | payer OTHER, MEDICAID, SELFPAY ==
--- NOTE | 2018-05-26 10:08 | DI.US.S_ITS ---
PROCEDURE: US OB >= 14 WEEKS FETUS INDICATIONS: ANATOMY SURVEY OUTSIDE/PRIOR DATING DATA: Last menstrual period (LMP): 12/23/17. LMP-based estimated date of delivery (THELMA): 09/29/18. First dating scan (date and location): 01/12/18. Estimated date of delivery (THELMA) from first dating scan: 10/02/18. TECHNIQUE: Real-time scanning was performed of the fetus, with image documentation and biometric measurements. Endovaginal scanning: No COMPARISON: [facility], , OB >= 14 WEEKS FETUS, 05/04/2018, 16:49. FINDINGS: General: A single living intrauterine gestation is present. Presentation: Vertex. Placenta: Placental position is posterior, without previa. Amniotic fluid index: 9.8 cm, normal range is 5-24 cm. heart rate: 144 beats per minute. Maternal cervical canal: 3.6 cm long. Normal lower limit is 2.5 cm. biometrics: Biparietal diameter: 22 weeks Head circumference: 21 weeks 5 days Abdominal circumference: 22 weeks 2 days Femur length: 21 weeks Estimated gestational age from initial scan: 21 weeks 4 days Composite gestational age from present scan: 21 weeks 5 days Estimated weight and percentile: 443 g; 50th percentile Measurement variability for biometric dating: +/- 7 days from 14 weeks to 15 weeks 6 days gestation, +/- 10 days from 16 weeks to 21 weeks 6 days gestation, +/- 2 weeks from 22 weeks to 27 weeks 6 days gestation, +/- 3 weeks for 28 weeks gestation or later. weight reference: 4500 g or EFW >90/95% is considered macrosomia or large for gestational age. EFW <10% is small for gestational age. EFW 5% or less is considered intra-uterine growth restriction. Anatomic survey: Neuro: Ventricles are non-dilated at less than 10 mm. Cisterna magna is normal at 3-11 mm. Cerebellum is normal in size and morphology. Nuchal skin fold: Normal at less than 6 mm between 14-21 weeks gestational age. Face: Nose and lips, facial profile are normal. Spine: No evidence for spina bifida. Heart: 4-chambered heart is present, with normal ventricular outflow tracts. Diaphragm: Diaphragm is intact. Stomach: Left-sided stomach is present. Kidneys: No hydronephrosis. Normal is less than 5 mm in 2nd trimester, less than 7 mm in 3rd trimester. Cord: 3-vessel cord has orthotopic insertion. Bladder: Normal in size. Extremities: All 4 extremities identified. IMPRESSION: 1. Single living IUP redemonstrated and interval growth is normal. 2. Normal anatomic survey. Dictated by: Jonah Chaparro [facility] Interpreted: Edel Umana MD on 05/26/2018 at 13:56 Approved by: Edel Umana M.D. on 05/26/2018 at 14:49
== END ==
PROVIDERS: Family Provider Obstetrics & Gynecology; PCP Obstetrics & Gynecology; Visit Provider Obstetrics & Gynecology
DX: Z34.82 Encounter for supervision of other normal pregnancy, second trimester (principal); Z3A.21 21 weeks gestation of pregnancy
CPT/HCPCS: 76811

== ENCOUNTER 2018-05-28 14:32 | Outpatient (CLI) | payer OTHER, MEDICAID, SELFPAY | END 2018-05-28 15:10 | disposition home or self-care (01) | LOC: LABOR 14:48 → OB 05-30 13:11 | PROVIDERS: Family Provider Obstetrics & Gynecology; PCP Obstetrics & Gynecology | DX: Z34.82 Encounter for supervision of other normal pregnancy, second trimester (principal); Z3A.22 22 weeks gestation of pregnancy | CPT/HCPCS: 59025; G0378; G0379 ==

== ENCOUNTER → 2018-06-16 12:44 | Outpatient (CLI) | payer OTHER, MEDICAID, SELFPAY ==
[2018-06-16 15:36] LABS: Hematocrit 33.5 % (36-46); Hemoglobin 11.1 g/dL (12.0-16.0)
[2018-06-16 16:11] LABS: GTT (PREG) 1 Hour PP 50gm Dose 72 mg/dL (76-139)
== END ==
PROVIDERS: Visit Provider Obstetrics & Gynecology
DX: Z34.82 Encounter for supervision of other normal pregnancy, second trimester (principal)
CPT/HCPCS: 36415; 82950; 85014; 85018

== ENCOUNTER 2018-06-18 16:21 | Outpatient (CLI) | payer OTHER, MEDICAID, SELFPAY ==
[2018-06-18] MEDS: MAGNESIUM HYDROXIDE 30 ML UDC PO (17:10)
[2018-06-18 17:16] LABS: Bacteria Urine None Seen; RBC Urine None Seen (0-5/HPF); WBC Urine None Seen (0-5/HPF)
[2018-06-18 17:17] LABS: Appearance Urine UA CLEAR; Bilirubin Urine UA NEGATIVE (NEGATIVE); Color Urine UA YELLOW; Glucose Urine UA NEGATIVE (Negative); Ketones Urine UA NEGATIVE (NEGATIVE); Leukocyte Esterase Urine UA NEGATIVE (NEGATIVE); Nitrite Urine UA NEGATIVE (Negative); Occult Blood Urine UA NEGATIVE (Negative); Protein Urine UA TRACE (Negative); Specific Gravity Urine UA 1.025 (1.000-1.035); Urobilinogen Urine UA 0.2 E.U./dL (0.2); pH Urine UA 5.5 (4.5-8.0)
[2018-06-18 17:37] LABS: Culture Indicated Urine Cult Not Indicated; Squamous Epithelial Cell Urine 5-10 /HPF
== END 2018-06-18 17:50 | disposition home or self-care (01) ==
LOC: OB 06-20 12:56
PROVIDERS: PCP Obstetrics & Gynecology
DX: O21.9 Vomiting of pregnancy, unspecified (principal); R10.9 Unspecified abdominal pain; Z3A.25 25 weeks gestation of pregnancy
CPT/HCPCS: 59025; 81001; G0378; G0379

== ENCOUNTER → 2018-07-04 15:47 | Outpatient (CLI) | payer OTHER, MEDICAID, SELFPAY ==
[2018-07-04 17:41] LABS: Influenza A and B by PCR Rapid Negative (Negative)
== END ==
PROVIDERS: PCP Obstetrics & Gynecology; Visit Provider Obstetrics & Gynecology
DX: R05 Cough (principal); R50.9 Fever, unspecified
CPT/HCPCS: 87400

== ENCOUNTER 2018-08-12 15:10 | Observation (INO) | payer OTHER, MEDICAID, SELFPAY ==
[2018-08-12] MEDS: OXYCODONE/ACETAMINOPHEN 5/325 TABLET 1 TAB PO (15:58)
[2018-08-12 15:59] LABS: Add Manual Diff / Slide Review NO; Basophils Absolute Auto 0 /uL (0-100); Basophils Percent Auto 0.3 % (0-2); Eosinophils Absolute Auto 100 /uL (0-450); Eosinophils Percent Auto 0.8 % (2-4); Hematocrit 31.5 % (36-46); Hemoglobin 10.5 g/dL (12.0-16.0); Lymphocytes Absolute Auto 2400 /uL (1100-4500); Lymphocytes Percent Auto 16.3 % (25-40); Mean Corpuscular HGB Conc 33.4 % (30-36); Mean Corpuscular Volume 86.8 fL (80-100); Monocytes Absolute Auto 800 /uL (0-900); Monocytes Percent Auto 5.3 % (3-14); Neutrophils Absolute Auto 11600 /uL (1500-7000); Neutrophils Percent Auto 77.3 % (50-75); Platelet Count 231 X10^3/uL (150-400); Red Blood Cell Count 3.63 X10^6/uL (4.0-5.2); Red Cell Distribution Width 12.6 % (11.6-14.8)
[2018-08-12 16:14] LABS: Appearance Urine UA CLEAR; Bilirubin Urine UA NEGATIVE (NEGATIVE); Color Urine UA YELLOW; Glucose Urine UA NEGATIVE (Negative); Ketones Urine UA NEGATIVE (NEGATIVE); Leukocyte Esterase Urine UA NEGATIVE (NEGATIVE); Nitrite Urine UA NEGATIVE (Negative); Occult Blood Urine UA NEGATIVE (Negative); Protein Urine UA NEGATIVE (Negative); Urobilinogen Urine UA 0.2 E.U./dL (0.2)
[2018-08-12 16:20] LABS: Alanine Aminotransferase 13 IU/L (9-52); Albumin 3.8 g/dL (3.5-5.0); Albumin Globulin Ratio 1.1 (1.0-2.8); Alkaline Phosphatase 71 U/L (38-126); Aspartate Aminotransferase 19 IU/L (14-36); Bilirubin Total 0.4 mg/dL (0.2-1.3); Bilirubin Unconjugated 0.4 mg/dL (0.0-1.1); Globulin 3.4 g/dL (1.7-4.1); HEMOLYSIS < 15 (0-50); Total Protein 7.2 g/dL (6.3-8.2)
[2018-08-12 16:21] LABS: Uric Acid 3.7 mg/dL (2.5-6.2)
[2018-08-12 16:30] LABS: RBC Urine 0-1/HPF (0-5/HPF); Squamous Epithelial Cell Urine 0-1 /HPF (0-5/HPF); WBC Urine 0-1/HPF (0-5/HPF)
[2018-08-12 16:31] LABS: Bacteria Urine Few (2-10); Culture Indicated Urine Cult Not Indicated
== END 2018-08-12 17:21 | disposition home or self-care (01) ==
PROVIDERS: Admitting Provider Obstetrics & Gynecology; PCP Obstetrics & Gynecology; Visit Provider Obstetrics & Gynecology
DX: O13.9 Gestational [pregnancy-induced] hypertension without significant proteinuria, unspecified trimester (principal); Z3A.33 33 weeks gestation of pregnancy
CPT/HCPCS: 36415; 59025; 59050; 80076; 81001; 84550; 85025; G0378; G0379

== ENCOUNTER 2018-08-18 19:28 | Emergency (ER) | payer OTHER, MEDICAID, SELFPAY ==
[2018-08-18 19:50] VITALS: BP 112/74; PULSE 74; RESP 16; TEMP 36.9; O2SAT 99
--- NOTE | 2018-08-18 21:25 | ED.HA ---
HPI - Headache General Chief Complaint: Headache Stated Complaint: ring in her head x2 wks Time Seen by Provider: 08/18/18 20:58 Source: patient and old records reviewed Mode of arrival: ambulatory Limitations: no limitations History of Present Illness HPI Narrative: Patient is a 23-year-old female who currently 34 weeks presenting with ringing in her head for last 2 weeks. She says she notices it most when it is quiet and she is trying to get some sleep. She occasionally has floaters in her eyes but no vision changes. She has no numbness tingling or weakness in her extremities. she was seen by her Ob, she was put on antibiotics for a possible sinus infection. She is still taking the antibiotics. She has not had any fever no neck pain no real headache. She sometimes has some heart palpitations. Denies worse shortness of breath, she says she has been short of breath since she has been which is not new for her. No productive cough MD Complaint: other (ringing in head) Onset (ago): week(s) (2) Onset description: gradual Related Data Previous Rx's Medication Instructions Recorded docusate sodium [Colace] 100 mg PO BID #14 cap 02/09/17 cephalexin 500 mg PO BID #20 cap 02/09/18 ondansetron 4 mg disintegrating 4 mg PO Q6H PRN #20 tab 05/23/18 tablet Allergies Allergy/AdvReac Type Severity Reaction Status Date / Time codeine Allergy Intermediate itching, Verified 08/18/18 19:54 SOB Review of Systems Review of Systems GENERAL: Denies chills, fatigue, malaise, fever, sweats, travel HEENT: Denies sinus pain, ear pain, sore throat, difficulty swallowing, neck pain RESPIRATORY: Denies dyspnea, cough, wheezing, hemoptysis, sputum. CARDIOVASCULAR: Denies chest pain, palpitations, orthopnea, edema GASTROINTESTINAL: Denies nausea, vomiting, abdominal pain, diarrhea, constipation, melena. : Denies dysuria, frequency, incontinence, hematuria, urinary retention, flank pain. MUSCULOSKELETAL: Denies weakness, joint pain, or bony pain SKIN: No rash, no erythema, no pruritus NEUROLOGIC: See HPI PSYCHIATRIC: No concerning psychosocial issues. 12 point review of systems is negative except for those stated above and HPI PFSH Social History Smoking Status: Never smoker Social History Smoking Status: Never smoker Exam Initial Vital Signs Initial Vital Signs: Vital Signs Temperature 98.4 F 08/18/18 19:50 Pulse Rate 74 08/18/18 19:50 Respiratory Rate 16 08/18/18 19:50 Blood Pressure 112/74 08/18/18 19:50 Pulse Oximetry 99 08/18/18 19:50 GENERAL: Well-appearing, well-nourished and in no acute distress. HEENT: Head atraumatic,EOMI, pupils reactive, face symmetric, moist mucous membranes Neck is supple no meningeal signs CARDIOVASCULAR: Regular rate and rhythm without murmurs, rubs or gallops. RESPIRATORY: Breath sounds equal bilaterally, no wheezes rales or rhonchi. ABDOMEN: Soft, gravid nontender. Normoactive bowel sounds all 4 quadrants. No guarding or rebound. : No CVA tenderness EXTREMITIES: Normal range of motion, no clubbing or edema. Neurovascularly intact NEUROLOGICAL: Alert and oriented x4.Normal gait and speech. Cranial nerves II through XII grossly intact. 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 Course Orders Ordered: ED Orders 08/18/18 21:38 Complete Blood Count AUTO DIFF Stat Comprehensive Metabolic Panel Stat 08/18/18 21:49 Urinalysis and Microscopic Stat Urine Culture Stat Discontinued Medications Sodium Chloride (Normal Saline 0.9%) 1,000 mls @ 1,000 mls/hr IV BOLUS ONE Stop: 08/18/18 22:24 Last Infusion: 08/18/18 22:55 Dose: 0 mls/hr Admin: 08/18/18 21:44 Dose: 1,000 mls/hr Vital Signs - 8 hr 08/18/18 19:50 08/18/18 23:28 Temperature 98.4 F Pulse Rate 74 83 Respiratory Rate 16 17 Blood Pressure 112/74 101/59 L Pulse Oximetry 99 100 MDM - Headache Lab Data Attestation: I reviewed the patient's lab results. Result diagrams: 08/18/18 21:38 08/18/18 21:38 Lab Results 08/18/18 08/18/18 08/18/18 Range/Units 21:38 21:38 21:49 WBC 16.0 H (4.5-11.0) X10^3/uL RBC 3.63 L (4.0-5.2) X10^6/uL Hgb 10.2 L (12.0-16.0) g/dL Hct 31.8 L (36-46) % MCV 87.5 (80-100) fL MCH 27.9 (26-34) PG MCHC 31.9 (30-36) % RDW 12.7 (11.6-14.8) % Plt Count 219 (150-400) X10^3/uL Neut % (Auto) 74.8 (50-75) % Lymph % (Auto) 17.5 L (25-40) % [place] % (Auto) 6.3 (3-14) % Eos % (Auto) 1.1 L (2-4) % Baso % (Auto) 0.3 (0-2) % Neut # (Auto) 51125 H (6750-8831) /uL Lymph # (Auto) 2800 (0809-4059) /uL [place] # (Auto) 1000 H (0-900) /uL Eos # (Auto) 200 (0-450) /uL Baso # (Auto) 100 (0-100) /uL Sodium 137 (137-145) mmol/L Potassium 3.5 (3.4-5.1) mmol/L Chloride 105 (98-107) mmol/L Carbon Dioxide 22 (22-32) mmol/L BUN 8 (7-17) mg/dL Creatinine 0.50 L (0.52-1.04) mg/dL Estimated GFR > 60.0 (>60) mL/min BUN/Creatinine Ratio 16.0 (6-22) Glucose 79 (70-100) mg/dL Calcium 8.6 (8.4-10.2) mg/dL Total Bilirubin 0.5 (0.2-1.3) mg/dL AST 22 (14-36) IU/L ALT 10 (9-52) IU/L Alkaline Phosphatase 78 (38-126) U/L Total Protein 7.0 (6.3-8.2) g/dL Albumin 3.8 (3.5-5.0) g/dL Globulin 3.2 (1.7-4.1) g/dL Albumin/Globulin Ratio 1.2 (1.0-2.8) Urine Color Yellow Urine Appearance Clear Urine pH 6.5 (4.5-8.0) Ur Specific [place] 1.020 (1.000-1.035) Urine Protein Negative (Negative) Urine Glucose (UA) Negative (Negative) g/dL Urine Ketones Negative (NEGATIVE) Urine Occult Blood Negative (Negative) Urine Nitrate Negative (Negative) Urine Bilirubin Negative (NEGATIVE) Urine Urobilinogen 0.2 (0.2) E.U./dL Ur Leukocyte Esterase Trace H (NEGATIVE) Urine RBC 0-1/hpf (0-5/HPF) Urine WBC 0-1/hpf (0-5/HPF) Ur Squamous Epith Cells 1-5 /hpf (0-5/HPF) Urine Bacteria Few (2-10) H (None) Ur Culture Indicated? Specimen cultured MDM Narrative Medical decision making narrative: The patient has no focal deficits. She really does not even have a headache she only notices ringing when she lies down to go to sleep. At this time I do not feel that the risk of a CT scan is beneficial. I have discussed this with both patient and her . They agree. She may have a UTI but is already on amoxicillin. I recommend finishing her antibiotics. Culture has been sent. heart tones noted on nursing notes Discharge Plan Departure Patient Disposition: Home Clinical Impression: UTI (urinary tract infection) Qualifiers: Urinary tract infection type: acute cystitis Hematuria presence: without hematuria Qualified Code(s): N30.00 - Acute cystitis without hematuria Discharge Date/Time: 08/18/18 23:31 Interventions: ED Discharge Assessment Last Done: 08/18/18 23:28 Instructions: DI for Urinary Tract Infection (UTI) Activity Restrictions/Additional Instructions: *You have been diagnosed with UTI *What to do: Increase fluids intake *Continue to take medications as directed Finish antibiotics as previously prescribed *Follow up with your primary care provider in 2-3 days *Return to ER if you should have persistent vomiting headache or any new, worsening or concerning symptoms Prescriptions: No Action docusate sodium [Colace] 100 MG capsule 100 mg PO BID Qty: 14 RF: 1 ondansetron 4 mg tablet,disintegrating 4 mg PO Q6H PRN (Reason: nausea and vomiting) Qty: 20 RF: 1 cephalexin 500 mg capsule 500 mg PO BID Qty: 20 RF: 0 Referrals: Sophia He MD [Primary Care Provider] -
--- NOTE | 2018-08-18 21:30 | ED_ITS ---
HPI - Headache General Chief Complaint: Headache Stated Complaint: ring in her head x2 wks Time Seen by Provider: 08/18/18 20:58 Source: patient and old records reviewed Mode of arrival: ambulatory Limitations: no limitations History of Present Illness HPI Narrative: Patient is a 23-year-old female who currently 34 weeks presenting with ringing in her head for last 2 weeks. She says she notices it most when it is quiet and she is trying to get some sleep. She occasionally has floaters in her eyes but no vision changes. She has no numbness tingling or weakness in her extremities. she was seen by her Ob, she was put on antibiotics for a possible sinus infection. She is still taking the antibiotics. She has not had any fever no neck pain no real headache. She sometimes has some heart palpitations. Denies worse shortness of breath, she says she has been short of breath since she has been which is not new for her. No productive cough MD Complaint: other (ringing in head) Onset (ago): week(s) (2) Onset description: gradual Related Data Previous Rx's Medication Instructions Recorded docusate sodium [Colace] 100 mg PO BID #14 cap 02/09/17 cephalexin 500 mg PO BID #20 cap 02/09/18 ondansetron 4 mg disintegrating 4 mg PO Q6H PRN #20 tab 05/23/18 tablet Allergies Allergy/AdvReac Type Severity Reaction Status Date / Time codeine Allergy Intermediate itching, Verified 08/18/18 19:54 SOB Review of Systems Review of Systems GENERAL: Denies chills, fatigue, malaise, fever, sweats, travel HEENT: Denies sinus pain, ear pain, sore throat, difficulty swallowing, neck pain RESPIRATORY: Denies dyspnea, cough, wheezing, hemoptysis, sputum. CARDIOVASCULAR: Denies chest pain, palpitations, orthopnea, edema GASTROINTESTINAL: Denies nausea, vomiting, abdominal pain, diarrhea, constipation, melena. : Denies dysuria, frequency, incontinence, hematuria, urinary retention, flank pain. MUSCULOSKELETAL: Denies weakness, joint pain, or bony pain SKIN: No rash, no erythema, no pruritus NEUROLOGIC: See HPI PSYCHIATRIC: No concerning psychosocial issues. 12 point review of systems is negative except for those stated above and HPI PFSH Social History Smoking Status: Never smoker Social History Smoking Status: Never smoker Exam Initial Vital Signs Initial Vital Signs: Vital Signs Temperature 98.4 F 08/18/18 19:50 Pulse Rate 74 08/18/18 19:50 Respiratory Rate 16 08/18/18 19:50 Blood Pressure 112/74 08/18/18 19:50 Pulse Oximetry 99 08/18/18 19:50 GENERAL: Well-appearing, well-nourished and in no acute distress. HEENT: Head atraumatic,EOMI, pupils reactive, face symmetric, moist mucous membranes Neck is supple no meningeal signs CARDIOVASCULAR: Regular rate and rhythm without murmurs, rubs or gallops. RESPIRATORY: Breath sounds equal bilaterally, no wheezes rales or rhonchi. ABDOMEN: Soft, gravid nontender. Normoactive bowel sounds all 4 quadrants. No guarding or rebound. : No CVA tenderness EXTREMITIES: Normal range of motion, no clubbing or edema. Neurovascularly intact NEUROLOGICAL: Alert and oriented x4.Normal gait and speech. Cranial nerves II through XII grossly intact. private banker strength equal bilaterally SKIN: Warm, dry, no laceration, no petechiae, no rashes or lesions. Course Orders Ordered: ED Orders 08/18/18 21:38 Complete Blood Count AUTO DIFF Stat Comprehensive Metabolic Panel Stat 08/18/18 21:49 Urinalysis and Microscopic Stat Urine Culture Stat Discontinued Medications Sodium Chloride (Normal Saline 0.9%) 1,000 mls @ 1,000 mls/hr IV BOLUS ONE Stop: 08/18/18 22:24 Last Infusion: 08/18/18 22:55 Dose: 0 mls/hr Admin: 08/18/18 21:44 Dose: 1,000 mls/hr Vital Signs - 8 hr 08/18/18 19:50 08/18/18 23:28 Temperature 98.4 F Pulse Rate 74 83 Respiratory Rate 16 17 Blood Pressure 112/74 101/59 L Pulse Oximetry 99 100 MDM - Headache Lab Data Attestation: I reviewed the patient's lab results. Result diagrams: 08/18/18 21:38 08/18/18 21:38 Lab Results 08/18/18 08/18/18 08/18/18 Range/Units 21:38 21:38 21:49 WBC 16.0 H (4.5-11.0) X10^3/uL RBC 3.63 L (4.0-5.2) X10^6/uL Hgb 10.2 L (12.0-16.0) g/dL Hct 31.8 L (36-46) % MCV 87.5 (80-100) fL MCH 27.9 (26-34) PG MCHC 31.9 (30-36) % RDW 12.7 (11.6-14.8) % Plt Count 219 (150-400) X10^3/uL Neut % (Auto) 74.8 (50-75) % Lymph % (Auto) 17.5 L (25-40) % [place] % (Auto) 6.3 (3-14) % Eos % (Auto) 1.1 L (2-4) % Baso % (Auto) 0.3 (0-2) % Neut # (Auto) 69355 H (8840-9492) /uL Lymph # (Auto) 2800 (7967-5080) /uL [place] # (Auto) 1000 H (0-900) /uL Eos # (Auto) 200 (0-450) /uL Baso # (Auto) 100 (0-100) /uL Sodium 137 (137-145) mmol/L Potassium 3.5 (3.4-5.1) mmol/L Chloride 105 (98-107) mmol/L Carbon Dioxide 22 (22-32) mmol/L BUN 8 (7-17) mg/dL Creatinine 0.50 L (0.52-1.04) mg/dL Estimated GFR > 60.0 (>60) mL/min BUN/Creatinine Ratio 16.0 (6-22) Glucose 79 (70-100) mg/dL Calcium 8.6 (8.4-10.2) mg/dL Total Bilirubin 0.5 (0.2-1.3) mg/dL AST 22 (14-36) IU/L ALT 10 (9-52) IU/L Alkaline Phosphatase 78 (38-126) U/L Total Protein 7.0 (6.3-8.2) g/dL Albumin 3.8 (3.5-5.0) g/dL Globulin 3.2 (1.7-4.1) g/dL Albumin/Globulin Ratio 1.2 (1.0-2.8) Urine Color Yellow Urine Appearance Clear Urine pH 6.5 (4.5-8.0) Ur Specific [place] 1.020 (1.000-1.035) Urine Protein Negative (Negative) Urine Glucose (UA) Negative (Negative) g/dL Urine Ketones Negative (NEGATIVE) Urine Occult Blood Negative (Negative) Urine Nitrate Negative (Negative) Urine Bilirubin Negative (NEGATIVE) Urine Urobilinogen 0.2 (0.2) E.U./dL Ur Leukocyte Esterase Trace H (NEGATIVE) Urine RBC 0-1/hpf (0-5/HPF) Urine WBC 0-1/hpf (0-5/HPF) Ur Squamous Epith Cells 1-5 /hpf (0-5/HPF) Urine Bacteria Few (2-10) H (None) Ur Culture Indicated? Specimen cultured MDM Narrative Medical decision making narrative: The patient has no focal deficits. She really does not even have a headache she only notices ringing when she lies down to go to sleep. At this time I do not feel that the risk of a CT scan is benef icial. I have discussed this with both patient and her . They agree. She may have a UTI but is already on amoxicillin. I recommend finishing her antibiotics. Culture has been sent. heart tones noted on nursing notes Discharge Plan Departure Patient Disposition: Home Clinical Impression: UTI (urinary tract infection) Qualifiers: Urinary tract infection type: acute cystitis Hematuria presence: without hematuria Qualified Code(s): N30.00 - Acute cystitis without hematuria Discharge Date/Time: 08/18/18 23:31 Interventions: ED Discharge Assessment Last Done: 08/18/18 23:28 Instructions: DI for Urinary Tract Infection (UTI) Activity Restrictions/Additional Instructions: *You have been diagnosed with UTI *What to do: Increase fluids intake *Continue to take medications as directed Finish antibiotics as previously prescribed *Follow up with your primary care provider in 2-3 days *Return to ER if you should have persistent vomiting headache or any new, worsening or concerning symptoms Prescriptions: No Action docusate sodium [Colace] 100 MG capsule 100 mg PO BID Qty: 14 RF: 1 ondansetron 4 mg tablet,disintegrating 4 mg PO Q6H PRN (Reason: nausea and vomiting) Qty: 20 RF: 1 cephalexin 500 mg capsule 500 mg PO BID Qty: 20 RF: 0 Referrals: Sophia He MD [Primary Care Provider] -
[2018-08-18] MEDS: SODIUM CHLORIDE 0.9% 1,000 ML 1000 ML IV (21:44)
[2018-08-18 22:02] LABS: Add Manual Diff / Slide Review NO; Basophils Absolute Auto 100 /uL (0-100); Basophils Percent Auto 0.3 % (0-2); Eosinophils Absolute Auto 200 /uL (0-450); Eosinophils Percent Auto 1.1 % (2-4); Hematocrit 31.8 % (36-46); Hemoglobin 10.2 g/dL (12.0-16.0); Lymphocytes Absolute Auto 2800 /uL (1100-4500); Lymphocytes Percent Auto 17.5 % (25-40); Mean Corpuscular HGB Conc 31.9 % (30-36); Mean Corpuscular Hemoglobin 27.9 PG (26-34); Mean Corpuscular Volume 87.5 fL (80-100); Monocytes Absolute Auto 1000 /uL (0-900); Monocytes Percent Auto 6.3 % (3-14); Neutrophils Absolute Auto 12000 /uL (1500-7000); Neutrophils Percent Auto 74.8 % (50-75); Platelet Count 219 X10^3/uL (150-400); Red Blood Cell Count 3.63 X10^6/uL (4.0-5.2); Red Cell Distribution Width 12.7 % (11.6-14.8)
[2018-08-18 22:07] LABS: Alanine Aminotransferase 10 IU/L (9-52); Albumin 3.8 g/dL (3.5-5.0); Albumin Globulin Ratio 1.2 (1.0-2.8); Alkaline Phosphatase 78 U/L (38-126); Aspartate Aminotransferase 22 IU/L (14-36); Bilirubin Total 0.5 mg/dL (0.2-1.3); Blood Urea Nitrogen 8 mg/dL (7-17); Calcium 8.6 mg/dL (8.4-10.2); Carbon Dioxide 22 mmol/L (22-32); Chloride 105 mmol/L (98-107); Estimated Glomerular Filt Rate > 60.0 mL/min (>60); Globulin 3.2 g/dL (1.7-4.1); Glucose 79 mg/dL (70-100); HEMOLYSIS 16 (0-50); Potassium 3.5 mmol/L (3.4-5.1); Sodium 137 mmol/L (137-145)
[2018-08-18 22:17] LABS: Appearance Urine UA CLEAR; Bilirubin Urine UA NEGATIVE (NEGATIVE); Color Urine UA YELLOW; Glucose Urine UA NEGATIVE (Negative); Ketones Urine UA NEGATIVE (NEGATIVE); Leukocyte Esterase Urine UA TRACE (NEGATIVE); Nitrite Urine UA NEGATIVE (Negative); Occult Blood Urine UA NEGATIVE (Negative); Protein Urine UA NEGATIVE (Negative); Urobilinogen Urine UA 0.2 E.U./dL (0.2); pH Urine UA 6.5 (4.5-8.0)
[2018-08-18 22:23] LABS: Bacteria Urine Few (2-10); Culture Indicated Urine Specimen Cultured; RBC Urine 0-1/HPF (0-5/HPF); Squamous Epithelial Cell Urine 1-5 /HPF (0-5/HPF); WBC Urine 0-1/HPF (0-5/HPF)
[2018-08-18 23:28] VITALS: BP 101/59; PULSE 83; RESP 17; O2SAT 100
== END 2018-08-18 23:31 | disposition home or self-care (01) ==
PROVIDERS: Emergency Provider Emergency Medicine; PCP Obstetrics & Gynecology
DX: N30.00 Acute cystitis without hematuria (principal); H93.19 Tinnitus, unspecified ear; Z33.1 Pregnant state, incidental
CPT/HCPCS: 36591; 80053; 81001; 85025; 87086; 93005; 96360; 99283

== ENCOUNTER → 2018-09-08 13:38 | Outpatient (CLI) | payer OTHER, MEDICAID, SELFPAY ==
[2018-09-09 14:10] LABS: Strep Grp B PCR NEG for Grp B Strep
== END ==
PROVIDERS: PCP Obstetrics & Gynecology; Visit Provider Obstetrics & Gynecology
DX: Z34.83 Encounter for supervision of other normal pregnancy, third trimester (principal); Z3A.36 36 weeks gestation of pregnancy
CPT/HCPCS: 87653

== ENCOUNTER 2018-09-27 06:53 | Inpatient (IN) | payer OTHER, MEDICAID, SELFPAY ==
[2018-09-27 07:44] VITALS: BP 132/60
[2018-09-27] MEDS: OXYTOCIN PREMIX 30 UNIT/500 ML PLAST..BAG IV (08:06)
[2018-09-27] MEDS: LACTATED RINGERS 1,000 ML 100 ML IV ×2 (08:06→13:32)
[2018-09-27 09:38] LABS: Add Manual Diff / Slide Review NO; Basophils Absolute Auto 0 /uL (0-100); Basophils Percent Auto 0.3 % (0-2); Eosinophils Absolute Auto 200 /uL (0-450); Eosinophils Percent Auto 1.2 % (2-4); Hematocrit 29.9 % (36-46); Hemoglobin 10.2 g/dL (12.0-16.0); Lymphocytes Absolute Auto 2300 /uL (1100-4500); Lymphocytes Percent Auto 18.7 % (25-40); Mean Corpuscular HGB Conc 34.1 % (30-36); Mean Corpuscular Hemoglobin 29.1 PG (26-34); Mean Corpuscular Volume 85.4 fL (80-100); Monocytes Absolute Auto 900 /uL (0-900); Neutrophils Absolute Auto 9000 /uL (1500-7000); Neutrophils Percent Auto 72.8 % (50-75); Platelet Count 250 X10^3/uL (150-400); Red Blood Cell Count 3.51 X10^6/uL (4.0-5.2); Red Cell Distribution Width 13.5 % (11.6-14.8); White Blood Cell Count 12.4 X10^3/uL (4.5-11.0)
[2018-09-28] MEDS: IBUPROFEN 600 MG TABLET PO ×2 (04:21→10:29)
[2018-09-28 07:02] LABS: Hematocrit 32.3 % (36-46); Hemoglobin 10.7 g/dL (12.0-16.0)
[2018-09-28] MEDS: LANOLIN OINT 7 GM 1 APPLIC TOP (10:29)
[2018-09-28] MEDS: PRENATAL VIT,CALC/IRON/FOLIC 1 TABLET 1 TAB PO (10:30)
[2018-09-28] MEDS: DOCUSATE 250 MG CAPSULE PO (10:30)
[2018-09-28] MEDS: MEASLES,MUMPS,RUBELLA VACC/PF 0.5 ML VIAL SUBCUT (17:25)
[2018-09-28 17:53] VITALS: BP 132/60; PULSE 72; RESP 16; TEMP 36.8
--- NOTE | 2018-10-07 13:30 | P.HPOB_ITS ---
OB HPI Date/Time Date of admission: 09/27/18 Date Patient Seen: 09/27/18 Time Patient Seen: 07:30 History of Present Condition Chief complaint: EVALUATION OF LABOR : 2 Para: 1 Estimated Date of Delivery: 09/29/18 Estimated Gestational Age (weeks): 39+5 Narrative: Juli Menchaca is a 23 year old female 2 para 1 at 39 and 5 7th weeks gestation for induction of labor. Patient had a large for gestational age infant with her 1st and delivered at 41 weeks Indications Indication for induction OB: maternal discomfort History of Present care: good care, initiated at week # (11) and number of visits (11) Dating criteria: LMP confirmed by 1st trimester US Ultrasounds: normal 1st trimester US and normal mid trimester US Obstetrical complications: other (First-trimester bleeding) Medical complications: none Preadmission Labs Blood type: B (+) positive -: Antibody screen: negative, GBS status: negative, HBsAG: negative, HIV: negative, HSV 1: positive, HSV 2: negative and RPR/VDLR: negative -: Chlamydia screen: not detected and Gonorrhea screen: not detected -: Rubella: not immune and Varicella: immune HCT: 33.5 HCAB: negative PAP: Normal Quad screen: Normal Urine: No growth 1 hr GTT: 72 Prior (ies) History: 03/10/16 at 41 wks 8#14oz Evaluation Evaluation Baseline heart rate: 145 Variability: Moderate (11-25) monitor accelerations: Present monitor decelerations: Absent Category of Tracing: I Cervical dilation (cm): 1 Cervical effacement (%): 80 station: -2 Laboratory results: Laboratory Tests 09/27/18 09/27/18 09/28/18 09:08 09:08 06:20 WBC 12.4 H RBC 3.51 L Hgb 10.2 L 10.7 L Hct 29.9 L 32.3 L MCV 85.4 MCH 29.1 MCHC 34.1 RDW 13.5 Plt Count 250 Neut % (Auto) 72.8 Lymph % (Auto) 18.7 L [place] % (Auto) 7.0 Eos % (Auto) 1.2 L Baso % (Auto) 0.3 Neut # (Auto) 9000 H Lymph # (Auto) 2300 [place] # (Auto) 900 Eos # (Auto) 200 Baso # (Auto) 0 Blood Type B Positive Antibody Screen Negative PFS Social History Smoking Status: Never smoker Social History Smoking Status: Never smoker Meds Allergies Allergy/AdvReac Type Severity Reaction Status Date / Time codeine Allergy Intermediate itching, Verified 08/18/18 19:54 SOB Exam Vital Signs (past 8 hours): Generally: A well-developed, well-nourished female, no acute distress Lungs: Clear to auscultation bilaterally Cardiovascular: Regular rate and rhythm Fundal height: 38 cm Estimated weight: 7-1/2 lb Extremities: Negative Homans, no edema Objective Labs Result Diagrams: 09/28/18 06:20 Assessment and Plan Assessment and Plan Assessment and Plan narrative: Assessment: 23-year-old 2 para 1 at 39 weeks gestation for induction of labor secondary to large for gestational age at 41 weeks with her 1st Plan: Pitocin per protocol 2 Artificial rupture membranes when able Epidural as necessary Expected management to spontaneous vaginal delivery Time Spent with Patient Total time spent with greater than 50% in coordination of care (as documented) at patient's floor/unit and/or counseling patient:: 15-24 minutes
--- NOTE | 2018-10-07 13:30 | PM.OBPRVD ---
Delivery date: 09/27/18 Intrapartal events: None Cervical ripening method: none Induction method: per pitocin protocol Delivery augmentation: rupture of membranes Delivery monitor: external FHT and external uterine Route of delivery: Episiotomy description: None L&D Laceration Description: Periurethral - 1st Degree Delivery repair: chromic Estimated blood loss (mL): 150 Anesthesia type: Epidural Complications: None Narrative: Patient complete and pushed x1. 1726, a live female infant delivered spontaneously over an intact perineum. No nuchal cord. The remainder of the body delivered without difficulty and was placed on mom's abdomen. After the cord stopped pulsing it was double clamped and cut. Cord bloods were obtained. The placenta delivered intact with a 3 vessel cord at 5:37 p.m.. Pitocin was given in the IV fluids. Fundus was massaged to firm. A first-degree periurethral laceration was repaired with 4 0 chromic in the usual fashion. Hemostasis was achieved. Apgars 9 at 1 minute and 9 at 5 minutes. Weight 7 lb 10.4 oz. . Epidural analgesia. Mom and stable to recovery. Plan for aftercare: Routine care
--- NOTE | 2018-10-07 13:54 | P.DS_ITS ---
Discharge Providers Date of admission: 09/27/18 06:53 Discharge Date: 09/28/18 Primary care physician: Sophia He MD Consults: 09/27/18 19:47 Consult to Market Specialist Routine Comment: Discharge provider: Sophia He MD Summary Date Patient Seen: 09/28/18 Time Patient Seen: 07:45 Procedures: Pitocin induction of labor Artificial rupture membranes Spontaneous vaginal delivery Periurethral laceration repair Hospital Course: Patient is a 23-year-old 2 para 2 who presented on 09/27/2018 for scheduled induction of labor due to a previous large for gestational age . She was started on Pitocin. Artificial rupture of membranes was performed with clear amniotic fluid. She received an epidural for pain management. She had a spontaneous vaginal delivery without complication. Her course was unremarkable and she was discharged home on day # 1. Peripartum Data Delivery Method: Natural Vaginal Laceration description: Periurethral - 1st Degree Episiotomy description: None Procedures: Pitocin induction of labor Epidural analgesia Artificial rupture of membranes Periurethral laceration repair complications: none Status at Discharge Cognitive/behavioral status at discharge: oriented Functional status at discharge: independent ambulation Overall status at discharge: patient is progressing back to baseline Time Spent with Patient Total time spent providing and/or coordinating discharge services: Less than 30 minutes Objective Labs Result Diagrams: 09/28/18 06:20 Exam Vital Signs (past 8 hours): Generally: Patient walking around and room, no acute distress Fundus: Firm at U -1 Extremities: Negative Homans, no edema Discharge Plan Discharge Plan Patient Disposition: Home Discharge comment: Call with fever, chills or bleeding vaginally more than a pad in an hour Discharge Med Rec/Prescriptions Prescriptions: Discontinued ondansetron 4 mg tablet,disintegrating 4 mg PO Q6H PRN (Reason: nausea and vomiting) Qty: 20 RF: 1 Follow up/Referrals: Sophia He MD [Primary Care Provider] - 6 Weeks (Appointment WednesdayNovember 08 at 2:30pm please call next week for a appointment ) Provider Discharge Instructions Diet: Regular Activity: No intercourse for 6 weeks Skin/Wound/Dressing Care Report to your healthcare provider any signs of infection, such as:: chills, fev er, increased pain and unusual drainage Visit Report/Discharge Packet Instructions: DI for Labor and Delivery, Vaginal Discharge Data Primary Care Provider: Sophia He Attending Provider: Sophia He Admit Date/Time: 09/27/18 06:53 Discharges patient from system. Discharge Date/Time: 09/28/18 18:06
== END 2018-09-28 18:06 | disposition home or self-care (01) | DRG 560 ==
PROVIDERS: Admitting Provider Obstetrics & Gynecology; PCP Obstetrics & Gynecology; Visit Provider Obstetrics & Gynecology
DX: O26.813 Pregnancy related exhaustion and fatigue, third trimester (principal); O70.0 First degree perineal laceration during delivery; Z3A.39 39 weeks gestation of pregnancy; Z37.0 Single live birth
CPT/HCPCS: 01967; 36415; 59050; 59409; 85014; 85018; 85025; 86850; 86900; 86901; G0379; J2590